=== PATIENT | male | born 1960 | race African-American/Black ===

== ENCOUNTER 2022-05-30 10:14 | Outpatient (CLI) | payer MEDICARE, SELFPAY ==
--- NOTE | ~2022-05-30 | MR_ITS ---
EXAMINATION: MR shoulder LT wo con DATE: 05/30/2022 11:08 INDICATION: Anterior left shoulder pain and limited range of motion post pulling injury 3 weeks prior . TECHNIQUE: Magnetic resonance imaging (MRI) of the left shoulder was performed without intravenous co ntrast. Sequences included axial PD-weighted FS FSE, coronal oblique PD-weighted FS FSE, coronal obli que T2-weighted FS FSE, sagittal PD-weighted FS FSE, and sagittal T1-weighted SE. COMPARISON: None. FINDINGS: Coracoacromial arch: The acromion undersurface is curved in morphology (type II). There are small subacromial spurs as wel l as small heterotopic ossicles at the acromial side of the otherwise normal coracoacromial ligament. Moderate acromioclavicular osteoarthritis with small inferiorly directed osteophytes at the lateral head of the clavicle. Rotator cuff: Mild supraspinatus and moderate infraspinatus tendinopathy. There is a full-thickness tear of the ent maureen supraspinatus tendon along its superior facet footplate and full-thickness tear involving almost the entire infraspinatus tendon with a few residual intact fibers of the posterior most portion of th e tendon. The infraspinatus tendon tear extends anteriorly along the middle facet footplate and exten ds into the tendon more posteriorly the tear located approximately 1.2 cm from the footplate at the m id to posterior aspect of the middle facet. There is significant medial retraction of the torn tendon with the supraspinatus tear margin retracted up to 5 cm from the level of the footplate at the level of the acromioclavicular joint. The teres minor tendon is normal. Moderate subscapularis tendinopath y with partial-thickness involving a small portion of the superolateral aspect of the lesser tuberosi ty footplate and with split tear extending up to 1.5 similar medial to the level of the rim of the in tertubercular groove. This allows mild subluxation of the long head biceps tendon across the cephalad aspect of the medial rim of the intertubercular groove. This likely chronic given the mild hypertrop hic and cystic changes along the medial and lateral rims of the intertubercular groove. No evident at rophy of the subscapularis or teres minor muscle bellies. There is some medial retraction of the myot endinous junctions of the supraspinatus and infraspinatus tendons with both mild fatty atrophy as wel l as feathery muscular edema in the supraspinatus and infraspinatus muscle bellies suggesting the ten don tear is likely partially chronic with more subacute progression. Biceps tendon, glenoid labrum and glenohumeral cartilage: Tendinopathy without tear of the long head biceps tendon, moderate severity at the intra-articular po rtion of the tendon and mild at the extra articular portion of the tendon. Likely chronic degeneratio n of the diminutive posterior superior glenoid labrum. Partial-thickness cartilage loss with smooth c hondral surface along the superior third of the glenoid. Tarsal thickness cartilage loss with mild ch ondral surface irregularity at the inferomedial aspect of the humeral head. Deep chondral ulceration along the superolateral aspect of the humeral head. Fluid: Small amount of fluid and mild synovitis at the axillary recess of the glenohumeral joint with additi onal small amounts of fluid and more prominent synovitis at the deep subscapular recess as well as in the subacromial/subdeltoid bursa, the latter to indicating with the glenohumeral joint space through the full-thickness rotator cuff tear. No loose osteochondral bodies. Bones: There is cephalad subluxation of the humeral head with respect to the glenoid injury to the full-thic kness rotator cuff tear. This results in narrowing of the subacromial space with the articular cartil age at the apex of the humeral head abutting the undersurface of the acromion. No fracture or patholo gic marrow replacing process
== END 2022-05-30 10:15 ==
LOC: MICIMG 10:18
PROVIDERS: Visit Provider Physician Assistant
DX: M19.012 Primary osteoarthritis, left shoulder (principal); M75.122 Complete rotator cuff tear or rupture of left shoulder, not specified as traumatic
CPT/HCPCS: 73221